=== PATIENT | female | born 1945 | race Caucasian/White ===

== ENCOUNTER 2016-10-16 21:24 | Emergency (ER) ==
[2016-10-16 21:34] VITALS: BP 142/76; TEMP 99.7; BMI 31.1
[2016-10-16] MEDS: DILAUDID 1 MG/ML SYRINGE IM STA (22:29)
[2016-10-16] MEDS: PHENERGAN 25 MG/ML VIAL IM STA (22:30)
[2016-10-16] MEDS: TORADOL IM STA (22:30)
--- NOTE | 2016-10-16 22:37 | ED.PDOC ---
General ED Provider: Dr. TIFFANIE MCCALL-ER Chief Complaint: Headache Stated Complaint: laila got a migraine--laila not had one in a long time--im nauseated and light hurts me Time Seen by Physician: 21:30 Mode of Arrival: Walk-In Information Source: Patient, Family Exam Limitations: No limitations Primary Care Provider: MADINA BLANCO Nursing and Triage Documentation Reviewed and Agree: Yes Neurological Complaint Exam - Headache Complaint/Exam Onset: Gradual Duration: several hours Symptoms Are: Still present Episodes Lasting: Hours Worst Headache Ever: No Initial Severity: Mild Current Severity: Moderate Location: Diffuse Character: Reports: Dull, Throbbing, Pressure, Typical headache, Migraine Aggravating: Reports: Bright lights Alleviating: Reports: None Associated Signs and Symptoms: Reports: Nausea. Denies: Dizziness, Seizure, Vomiting, Sinus pressure, Fever, Neck pain, Neck stiffness, Decreased LOC, Visual changes Related History: Reports: Similar episode (hx of migraine henson). Denies: Recent trauma, Remote trauma Related Surgical History: Reports: None SAH Risk Factors: Reports: None Meningitis Risk Factors: Reports: None Temporal Arteritis Risk Factors: Reports: Female, Normal Head CT Within Last 12 Months: No Fundoscopic Exam: Present: Normal Findings Papilledema Present: No Temporal Artery Tenderness: Present: None Sinus Tenderness: Present: None TMJ Tenderness: Present: None Glascow Coma Scale (see protocol): 15 Meningeal Signs Positive: No Pain on Passive Flexion-Positive Kernig's: No ROM Limited In: No Limitiations Focal Weakness: Present: None Focal Sensory Loss: Present: None Gait: Normal Nystagmus Present: No Gag Reflex Present: No [id number]-Agat: Normal Findings Romberg Test Positive: No Babinski Sign: Negative Right, Negative Left Heel to Toe Normal: Yes Differential Diagnoses: Migraine Review of Systems - Review Of Systems Constitutional: Reports: No symptoms Eyes: Reports: No symptoms Ears, Nose, Mouth, Throat: Reports: No symptoms Respiratory: Reports: No symptoms Cardiac: Reports: No symptoms GI: Reports: Nausea : Reports: No symptoms Musculoskeletal: Reports: No symptoms Skin: Reports: No symptoms Neurological: Reports: Headache Endocrine: Reports: No symptoms Hematologic/Lymphatic: Reports: No symptoms All Other Systems: Reviewed and Negative Past Medical History - Past Medical History Previously Healthy: No Endocrine: Reports: None Cardiovascular: Reports: None Respiratory: Reports: None Hematological: Reports: None Gastrointestinal: Reports: GERD Genitourinary: Reports: None Neuro/Psych: Reports: Anxiety Musculoskeletal: Reports: Other Cancer: Reports: None Last Menstrual Period: 1971 - Surgical History General Surgical History: Reports: None - Family History Family History: Reports: None - Social History Smoking Status: Former smoker Hx Substance Use: No Alcohol Screening: None Lives: With family - Immunizations Tetanus Shot up to Date: Yes Physical Exam - Physical Exam Appearance: Well-appearing, No pain distress, Well-nourished Eyes: EDILSON, EOMI, Conjunctiva clear ENT: Ears normal, Nose normal, Oropharynx normal Neck: Supple Respiratory: Airway patent, Breath sounds clear, Breath sounds equal, Respirations nonlabored Cardiovascular: RRR, Pulses normal, No rub, No murmur GI/: Soft, Nontender, No masses, Bowel sounds normal, No Organomegaly Musculoskeletal: Normal strength, ROM intact, No edema, No calf tenderness Skin: Warm, Dry, Normal color Neurological: Sensation intact, Motor intact, Reflexes intact, Cranial nerves intact, Alert, Oriented Psychiatric: Affect appropriate, Mood appropriate Interpretation - Radiology Interpretation Radiology Interpretation By: Radiologist Radiology Results: Negative Exam Interpreted: CT Scan Re-Evaluation - Re-Evaluation Time of Re-Evaluation: 22:53 Status: Improved Vital Signs Stable: Yes Pain Level: 1 Appearance: NAD Lungs: Clear Skin: Warm and Dry Neuro: Alert and Oriented X3 CV: RRR Critical Care Note - Critical Care Note Total Time (mins): 0 Course - Course Orders, Labs, Meds: Lab Review 10/16/16 22:04 ESR 28 H Orders Category Date Time Status ESR Stat LAB 10/16/16 22:04 Completed Hydromorphone HCl [Dilaudid 1 mg/ml Syringe] MEDS 10/16/16 21:41 Discontinued 1 mg IM ONCE STA Ketorolac Tromethamine [Toradol] MEDS 10/16/16 21:41 Discontinued 60 mg IM ONCE STA Promethazine HCl [Phenergan 25 mg/ml Vial] MEDS 10/16/16 21:41 Discontinued 25 mg IM ONCE STA CT HEAD W/O CONTRAST Stat RADS 10/16/16 21:[address] PELVIS W/O CONTRAST Stat RADS 10/16/16 21:41 Completed Medications Discontinued Medications Generic Name Dose Route Start Last Admin Trade Name Freq PRN Reason Stop Dose Admin Hydromorphone HCl 1 mg 10/16/16 21:41 10/16/16 22:29 Dilaudid 1 Mg/Ml Syringe IM 10/16/16 21:42 1 mg ONCE STA Administration Ketorolac Tromethamine 60 mg 10/16/16 21:41 10/16/16 22:30 Toradol IM 10/16/16 21:42 60 mg ONCE STA Administration Promethazine HCl 25 mg 10/16/16 21:41 10/16/16 22:30 Phenergan 25 Mg/Ml Vial IM 10/16/16 21:42 25 mg ONCE STA Administration radiiologist called and asked if any recent trauma--has prominent lambdoid sutures--she denies any recent trauma) Vital Signs: Temp Pulse Resp BP Pulse Ox 10/16/16 21:28 99.7 F H 99 H 20 142/76 H 98 Departure - Departure Time of Disposition: 22:55 Disposition: HOME SELF-CARE Discharge Problem: Migraine headache Qualifiers: Migraine type: without aura Status migrainosus presence: without status migrainosus Intractability: not intractable Qualifier Code: (G43.009) Migraine without aura, not intractable, without status migrainosus Instructions: Migraine Headache (ED) Condition: Good Pt referred to PMD for follow-up: Yes Additional Instructions: f/u wtih dr blanco Allergies/Adverse Reactions: Allergies Penicillins Adverse Reaction (Verified 10/16/16 21:34) Home Medications: Ambulatory Orders Pantoprazole Sodium [Protonix] 40 mg PO BID 10/17/14 Butalbital/Aspirin/Caffeine [Fiorinal 50-325-40 Mg Capsule] 1 each PO 3-4XD #50 05/13/16 Darifenacin Hydrobromide [Enablex] 15 mg PO DAILY 05/13/16 Lorazepam [Ativan] 0.5 mg PO TID 05/13/16 Disposition Discussed With: Patient, Family
--- NOTE | 2016-10-16 22:40 | CT ---
EXAM: CT scan pelvis without contrast HISTORY: Hip pain COMPARISON: None. FINDINGS: Contiguous axial images obtained through the pelvis without contrast utilizing 3-mm colli mation. Sagittal and coronal reconstructions were imaged and reviewed.. Atherosclerotic changes ar e seen involving the aorta without aneurysm formation. There has been prior hysterectomy. There is diverticulosis without diverticulitis. There is a smal l umbilical hernia containing only fat. Mild degenerative changes noted about the SI joints and cyndee ateral hip joints. IMPRESSION: Mild degenerative changes noted about the hip joints and SI joints. Diverticulosis without diverticulitis. ASVD.
--- NOTE | 2016-10-16 22:44 | CT ---
Exam: CT exam of the brain without intravenous contrast. Comparison: None available. Reason for exam: Headache. FINDINGS: No acute intracranial hemorrhage, mass effect, ventricular dilatation, or territorial inf arction. The quadrigeminal and ambient cisterns are patent. There is no extraaxial fluid collectio n. There is marked prominence of the lambdoid sutures. The paranasal sinuses and mastoid air cells are unopacified. Impression: 1. Marked prominence of the lambdoid sutures. Imaging findings can be seen with trauma and and also be congenital. Recommend correlation with history of trauma to the calvarium. 2. No acute intracranial findings. Image interpretation was discussed directly with the ordering physician at 2239 hours on 10/16/2016. Report was faxed at the same time.
[2016-10-16 22:51] LABS: ERYTHROCYTE SEDIMENTATION RATE 28 mm/hr (0-20); ESR INTERNAL QC INTERNAL QC VALID
== END 2016-10-16 23:35 | disposition home or self-care (01) ==
LOC: ED 21:24
DX: G43.009 Migraine without aura, not intractable, without status migrainosus (principal)
CPT/HCPCS: 36415; 85651; 96372; 99283

== ENCOUNTER 2016-10-27 10:37 | Emergency (ER) | payer OTHER ==
[2016-10-27 10:55] VITALS: BP 187/92; TEMP 97.8; BMI 30.7
--- NOTE | 2016-10-27 11:00 | ED.PDOC ---
General ED Provider: Dr. GREG CHOPRA JR Chief Complaint: Weakness Stated Complaint: FEW WEEKS AGO PATIENT STATES SHE HIT HER HEAD ON A IRON PIPE. DR MUÑOZ FAMILY MD DIRECTED HER TO CALL HIM IF SHE DID NOT FEEL BETTER. TODAY PATIENT C/O GENERAL WEAKNESS AND FATIGUE WITH MILD HEADACHE[ End ]for the past week 97.8 61 20 187/92 08/22. TWO EXTRA ST.TYLENOL AT 0830 AM. Time Seen by Physician: 11:00 Mode of Arrival: Walk-In Information Source: Patient, Family Exam Limitations: No limitations Primary Care Provider: MADINA MUÑOZ Nursing and Triage Documentation Reviewed and Agree: No Review of Systems - Review Of Systems Constitutional: Reports: Malaise, Weakness Eyes: Reports: Photophobia Ears, Nose, Mouth, Throat: Reports: No symptoms Respiratory: Reports: No symptoms Cardiac: Reports: No symptoms GI: Reports: No symptoms : Reports: No symptoms Musculoskeletal: Reports: Neck pain Skin: Reports: No symptoms Neurological: Reports: Headache, Weakness Endocrine: Reports: No symptoms Hematologic/Lymphatic: Reports: No symptoms All Other Systems: Other Past Medical History - Past Medical History Previously Healthy: No Endocrine: Reports: None Cardiovascular: Reports: None Respiratory: Reports: None Hematological: Reports: None, Other (BLADDER ISSUES ) Gastrointestinal: Reports: GERD Genitourinary: Reports: None Neuro/Psych: Reports: Anxiety Musculoskeletal: Reports: Other Cancer: Reports: None Last Menstrual Period: 1973 - Surgical History General Surgical History: Reports: None, Hysterectomy ( PARTIAL HIST. 1971), Tubal ligation, Cholecystectomy (GALLBLADDER REMOVED), Back Surgery (2 NECK SURGERIES 1 LOWER BACK SURGER) - Family History Family History: Reports: None - Social History Smoking Status: Former smoker Hx Substance Use: No Alcohol Screening: None - Immunizations Tetanus Shot up to Date: Yes Physical Exam - Physical Exam Appearance: Ill-appearing Ill-appearing: Mild Pain Distress: Mild Eyes: EDILSON, EOMI, Conjunctiva clear ENT: Ears normal, Nose normal, Oropharynx normal Neck: Supple Respiratory: Airway patent Cardiovascular: RRR, Pulses normal, No rub, No murmur GI/: Soft, Nontender, No masses, Bowel sounds normal, No Organomegaly Musculoskeletal: Normal strength, ROM intact, No edema, No calf tenderness Skin: Warm, Dry, Normal color Neurological: Sensation intact, Motor intact, Reflexes intact, Cranial nerves intact, Alert, Oriented Psychiatric: Affect appropriate, Mood appropriate, Anxious Interpretation - Radiology Interpretation Radiology Interpretation By: Radiologist Radiology Results: Negative Exam Interpreted: CT Scan (head neck) - EKG Interpretation Time of EKG #1: 11:19 Rate: Normal Rhythm: Sinus Ectopy: None [place]: NL ST Segment: Normal Critical Care Note - Critical Care Note Total Time (mins): 5 Course - Course Hematology/Chemistry: 10/27/16 11:31 10/27/16 11:31 Orders, Labs, Meds: Lab Review 10/27/16 10/27/16 10/27/16 10:58 11:31 12:24 WBC 5.91 RBC 4.91 Hgb 13.6 Hct 40.7 MCV 82.9 MCH 27.7 MCHC 33.4 RDW Coeff of Víctor 13.0 Plt Count 289 Immature Gran % (Auto) 0.3 Neut % (Auto) 68.1 Lymph % (Auto) 22.7 Hardy % (Auto) 6.9 Eos % (Auto) 1.5 Baso % (Auto) 0.5 Immature Gran # (Auto) 0.0 Neut # 4.0 Lymph # 1.3 Hardy # 0.4 Eos # 0.1 Baso # 0.0 Puncture Site Rrad O2 Saturation 95.0 ABG pH 7.398 ABG pCO2 39.5 ABG pO2 74.0 L ABG HCO3 24.4 ABG Total CO2 26 ABG Base Excess 0 Felipe Test + FiO2 % 21.0 Sodium 136 Potassium 4.0 Chloride 102 Carbon Dioxide 27 Anion Gap 11.0 BUN 8 Creatinine 0.78 Estimated GFR (MDRD) 73.00 BUN/Creatinine Ratio 10.25 Glucose 94 Lactic Acid 7.6 Calcium 9.6 Total Bilirubin 0.68 AST 24 ALT 35 Alkaline Phosphatase 62 Total Creatine Kinase 26 Troponin I < 0.0100 B-Natriuretic Peptide 86 Total Protein 7.6 Albumin 4.0 Globulin 3.6 Albumin/Globulin Ratio 1.11 Procalcitonin < 0.05 Urine Color Yellow Urine Clarity Clear Urine pH 7.0 Ur Specific [place] 1.010 Urine Protein Negative Urine Glucose (UA) Negative Urine Ketones Negative Urine Blood Negative Urine Nitrite Negative Urine Bilirubin Negative Urine Urobilinogen 0.2 Ur Leukocyte Esterase Negative Orders Category Date Time Status ABG DRAW REQUEST Stat CARDIO 10/27/16 10:59 Completed EKG-(ED ONLY) Stat CARDIO 10/27/16 10:58 Completed ED HOUSEPERSON APPLIED .ONCE EMERGENCY 10/27/16 10:58 Active ED IV/MEDIPORT/POWERPORT .ONCE EMERGENCY 10/27/16 10:58 Active ABG Stat LAB 10/27/16 10:58 Completed B-TYPE NATRIURETIC PEPTIDE Stat LAB 10/27/16 11:31 Completed CBC W/ AUTO DIFF Stat LAB 10/27/16 11:31 Completed COMPREHENSIVE METABOLIC PANEL Stat LAB 10/27/16 11:31 Completed CREATINE KINASE Stat LAB 10/27/16 11:31 Completed LACTIC ACID Stat LAB 10/27/16 11:31 Completed PROCALCITONIN Stat LAB 10/27/16 11:31 Completed TROPONIN I Stat LAB 10/27/16 11:31 Completed UA [URINALYSIS C & S IF INDICATED] Stat LAB 10/27/16 12:24 Completed 0.9 % Sodium Chloride [Saline Flush] MEDS 10/27/16 10:58 Active 1 syr IVF PRN PRN Hydrocodone Bit/Acetaminophen [Nelson 5-325] MEDS 10/27/16 13:22 Discontinued 1 tab PO ONCE STA CHEST, 1V AP ONLY Stat RADS 10/27/16 10:[address] CERVICAL SPINE W/O CONTRAST Stat RADS 10/27/16 12:[address] HEAD W/O CONTRAST Stat RADS 10/27/16 10:59 Completed MRI BRAIN W/WO CONTRAST Stat RADS 10/27/16 12:53 Ordered Medications Generic Name Dose Route Start Last Admin Trade Name Freq PRN Reason Stop Dose Admin Sodium Chloride 1 syr 10/27/16 10:58 Saline Flush IVF PRN PRN To flush IV Discontinued Medications Generic Name Dose Route Start Last Admin Trade Name Freq PRN Reason Stop Dose Admin Acetaminophen/Hydrocodone Bitart 1 tab 10/27/16 13:22 10/27/16 13:37 Nelson 5-325 PO 10/27/16 13:23 1 tab ONCE STA Administration Vital Signs: Temp Pulse Resp BP Pulse Ox 10/27/16 10:42 97.8 F 61 20 187/92 H 20 L Departure - Departure Time of Disposition: 13:26 Disposition: HOME SELF-CARE Discharge Problem: Headache Instructions: General Headache (ED), Chronic Post Traumatic Headache (ED) Condition: Good Pt referred to PMD for follow-up: Yes Additional Instructions: Please follow-up with Dr. Muñoz in 1-3 days. MRI of the brain light exercise(walking) avoid strenuous activity such as video games television or computer games Prescriptions: Tramadol HCl [Ultram] 50 mg PO Q6H PRN #14 tablet PRN Reason: PAIN Allergies/Adverse Reactions: Allergies Penicillins Adverse Reaction (Verified 10/16/16 21:34) Home Medications: Ambulatory Orders Pantoprazole Sodium [Protonix] 40 mg PO BID 10/17/14 Darifenacin Hydrobromide [Enablex] 15 mg PO DAILY 05/13/16 Lorazepam [Ativan] 0.5 mg PO TID 05/13/16 Tramadol HCl [Ultram] 50 mg PO Q6H PRN #14 tablet 10/27/16
[2016-10-27 11:20] LABS: ABG BASE EXCESS 0 (-2.0-2.0); ABG HCO3 24.4 (22.0-26.0); ABG PCO2 39.5 mmHg (35-45); ABG PH 7.398 (7.35-7.45); ABG TCO2 26 (22.0-28.0)
[2016-10-27 11:40] LABS: BASOPHILS % (AUTO) 0.5 % (0.0-3.0); EOSINOPHILS # (AUTO) 0.1 K/ul (0.0-0.7); EOSINOPHILS % (AUTO) 1.5 % (0.0-7.0); HEMATOCRIT 40.7 % (37.0-47.0); HEMOGLOBIN 13.6 g/dl (12.0-16.0); IMMATURE GRANULOCYTE % (AUTO) 0.3 % (0.0-5.0); LYMPHOCYTES # (AUTO) 1.3 K/uL (0.60-3.4); LYMPHOCYTES % (AUTO) 22.7 (10.0-50.0); MEAN CORPUSCULAR HEMOGLOBIN 27.7 pg (27.0-31.0); MEAN CORPUSCULAR HGB CONC 33.4 (31.8-35.4); MEAN CORPUSCULAR VOLUME 82.9 fl (81.0-99.0); MONOCYTES # (AUTO) 0.4 K/uL (0.4-2.0); MONOCYTES % (AUTO) 6.9 (0-10); NEUTROPHILS % (AUTO) 68.1; PLATELET COUNT 289 10^3/uL (140-440); RED BLOOD COUNT 4.91 10^6/ul (4.20-5.40); WHITE BLOOD COUNT 5.91 K/ul (4.6-10.2)
--- NOTE | 2016-10-27 11:54 | DI ---
Exam: Single x-ray of the chest. Comparison: 08/15/2010. CTA chest performed on 12/01/2014. Reason for exam: Chest pain. FINDINGS: No pneumothorax, pleural effusion, or focal consolidation. The cardiac silhouette is not enlarged. Granulomatous disease is seen within the lung parenchyma. The imaged osseous structures a re unremarkable without acute fracture. Operative changes are seen after ACDF. Impression: No acute cardiopulmonary process.
[2016-10-27 12:06] LABS: ALANINE AMINOTRANSFERASE 35 U/L (12-78); ALBUMIN/GLOBULIN RATIO 1.11; ALKALINE PHOSPHATASE 62 U/L (53-141); ASPARTATE AMINO TRANSFERASE 24 U/L (15-37); BILIRUBIN,TOTAL 0.68 mg/dL (0.00-1.20); BLOOD UREA NITROGEN 8 mg/dL (7-18); BUN/CREATININE RATIO 10.25; CALCIUM 9.6 mg/dL (8.2-10.2); CARBON DIOXIDE 27 mmol/L (23-31); CHLORIDE 102 mmol/L (98-107); CREATINE KINASE 26 U/L; CREATININE 0.78 mg/dL (0.60-1.30); GLUCOSE 94 mg/dL (82-115); SODIUM 136 mmol/L (136-145); TOTAL PROTEIN 7.6 g/dL (5.8-8.1)
--- NOTE | 2016-10-27 12:07 | CT ---
EXAM: CT head without contrast. HISTORY: Leg weakness. Worsening headache. Recent head trauma. Subsequent evaluation. COMPARISON: 10/16/2016. TECHNIQUE: Multiple axial images of the brain were obtained from the skull base through the vertex without intravenous contrast. FINDINGS: There is no intracranial hemorrhage or extraaxial collection. The murphy-white differentia tion is maintained without evidence for acute large vascular territory infarction. There are areas of periventricular and subcortical white matter low attenuation. The cortical sulci and cerebral ve ntricles are symmetrically enlarged. The basal cisterns are well visualized. There is no hydroceph alus, mass effect, or midline shift. The paranasal sinuses and mastoid air cells are clear. Promin ence of the lambdoid sutures again noted, which appears stable, most likely congenital. The calvari um is intact. Since the prior study, there has been no significant interval change. IMPRESSION: 1. No acute intracranial abnormality. 2. Chronic small vessel ischemic changes and atrophy.
[2016-10-27 12:38] LABS: BILIRUBIN,URINE Negative (NEGATIVE); KETONES,URINE Negative (NEGATIVE); LEUKOCYTE ESTERASE ,URINE Negative (NEGATIVE); NITRITE,URINE Negative (NEGATIVE); PROTEIN,URINE Negative (NEGATIVE); URINE, BLOOD Negative (NEGATIVE)
[2016-10-27 12:40] LABS: ADD URINE MICROSCOPIC NO
--- NOTE | 2016-10-27 13:21 | CT ---
EXAM: CT of the cervical spine without contrast History: Head and neck trauma. Technique: Multiplanar CT images through the cervical spine were obtained without the administratio n of IV contrast Findings: The visualized lung apices are free of consolidation. The visualized airway does remain patent. Ant erior cervical fusion hardware at C4-5 is grossly intact. Bony spinal canal is not significantly co mpromised. No prevertebral soft tissue swelling. Predental space is not widened. Impression: No acute osseous abnormality of the cervical spine.
[2016-10-27] MEDS ORDERED: NORCO 5-325 PO STA (13:22)
== END 2016-10-27 15:03 | disposition home or self-care (01) ==
LOC: ED 10:37
DX: G44.309 Post-traumatic headache, unspecified, not intractable (principal); R53.1 Weakness; R53.83 Other fatigue; M54.2 Cervicalgia; Z79.899 Other long term (current) drug therapy
CPT/HCPCS: 36415; 80053; 81001; 82550; 82803; 83605; 83880; 84145; 84484; 85025; 93005; 93010; 99283

== ENCOUNTER 2016-10-28 06:56 | Outpatient (CLI) | payer OTHER ==
[2016-10-27 10:55] VITALS: BMI 30.7
--- NOTE | 2016-10-28 09:38 | MRI ---
EXAM: MRI brain without and with IV contrast. DATE: 10/28/2016. HISTORY: Head injury. Iron pipe hit top of head 13 Oct 2016. Headaches, migraines since the injury . TECHNIQUE: Sagittal T1W pre and postcontrast, axial T2W, axial FLAIR, axial T1W pre and postcontras t, axial DWI, coronal T1W postcontrast, and coronal T2W GRE sequences of the brain were obtained usi 1.2 Molly magnet. CONTRAST: Omniscan - 14 ml IV. COMPARISON: CT head 10/27/2016. FINDINGS: The lateral ventricles, temporal tips, third ventricle and left sylvian fissure are mildl y prominent. The frontal lobe sulci are minor/mildly enlarged due to involutional change. Horizont al fissures and some cerebellar sulci are also enlarged. No midline shift, mass effect or abnormal extra-axial fluid collection is apparent. No acute infarct, hemorrhage or enhancing neoplasm is rosy ntified. No abnormal contrast enhancement is identified in the brain, meninges or dura. Minimal T2 W/FLAIR hyperintensity is observed white matter abutting the anterior horn of each lateral ventricle . A few 2-3 mm, T2W/FLAIR bright, non-enhancing foci are scattered within the frontal subcortical w carlene matter bilaterally. The murphy - white matter differentiation is normal. No migration or divert iculation abnormality is identified. The amygdala, hippocampus, and parahippocampal gyri are symmet didier and normal bilaterally. The 7th/8th cranial nerve complexes, cerebellopontine angles, brainstem , and visible cervical spinal cord are normal. There is no cerebellar tonsillar ectopia. The pitui tary gland is normal in size and signal. Corpus callosum is normal in size and configuration. Left vertebral artery is dominant. Flow voids are present in the major intracranial arteries and in the dural venous sinuses. No aneurysm, AVM or dural venous sinus thrombosis is apparent. No orbit abn ormality is identified. The mastoid air cells are unremarkable. There is opacification of a single left anterior ethmoid air cell. Remaining paranasal sinuses are clear. No neck mass or lymphadeno maureen is detected. No calvarial neoplasm or acute fracture is evident. C3-4 posterior disc/osteophy te complex appears cause mild central canal stenosis. IMPRESSIONS: 1. No acute infarct, hemorrhage, enhancing neoplasm or hydrocephalus. 2. Minor cerebral small vessel disease. 3. Mild cerebral and cerebellar atrophy. 4. Minor left anterior ethmoid sinusitis. 5. C3-4 mild central canal stenosis.
== END 2016-10-28 06:57 | disposition home or self-care (01) ==
LOC: RAD 06:56
PROVIDERS: ATTEND Emergency Medicine
DX: S09.90XA Unspecified injury of head, initial encounter (principal)

== ENCOUNTER 2016-11-12 16:04 | Outpatient (CLI) ==
--- NOTE | 2016-11-12 16:44 | DI ---
EXAM: Lumbar spine five views, including oblique views HISTORY: Low back pain COMPARISON: None TECHNIQUE: Five views lumbar spine were performed including oblique views FINDINGS: Sacroiliac joints intact. Sacral arcuate intact. Vertebral bodies normal height. No fr acture. No subluxation. Multilevel marginal osteophyte formation. Mild multilevel intervertebral disc space narrowing and mild to moderate intervertebral disc space narrowing L4-L5. Multilevel fac et arthrosis. Atherosclerotic vascular calcification. IMPRESSION: Chronic discogenic degenerative disease and facet arthrosis.
== END 2016-11-12 16:05 | disposition home or self-care (01) ==
LOC: RAD 16:04
PROVIDERS: ATTEND Nurse Practitioner Family
DX: M54.5 Low back pain (principal)

== ENCOUNTER 2017-02-05 07:50 | Outpatient (CLI) | payer OTHER ==
--- NOTE | 2017-02-06 11:04 | MAMMO ---
EXAM: Bilateral digital screening mammogram History: Screening. Comparison: Bilateral mammogram 01/23/2016 Findings: MLO and CC views of bilateral breasts demonstrate heterogeneously dense breast parenchyma which can obscure small lesions. Stable benign bilateral vascular and scattered calcifications. T here are no dominant masses, no suspicious microcalcifications and no architectural distortions Impression: Benign stable mammogram. Recommend followup routine screening mammography in 1 year. BIRADS 2
== END 2017-02-05 07:51 | disposition home or self-care (01) ==
LOC: RAD 07:50
PROVIDERS: ATTEND Internal Medicine
DX: Z12.31 Encounter for screening mammogram for malignant neoplasm of breast (principal)
CPT/HCPCS: 77067

== ENCOUNTER 2017-05-10 11:36 | Emergency (ER) ==
[2017-05-10] MEDS ORDERED: STADOL IM STA (11:43)
[2017-05-10] MEDS ORDERED: ZOFRAN 4 MG/2 ML IM STA (11:43)
[2017-05-10 11:49] VITALS: BP 168/89; TEMP 96.7; BMI 29.0
--- NOTE | 2017-05-10 11:51 | ED.PDOC ---
General ED Provider: Dr. RONNIE KEYES Chief Complaint: Headache Stated Complaint: Came for the nadia, with sister, says light is bothering her, front of the head is hurting,. it all started since October 2016, when she had head injury. concussion. Time Seen by Physician: 11:40 Primary Care Provider: MADINA MUÑOZ Nursing and Triage Documentation Reviewed and Agree: Yes Neurological Complaint Exam - Headache Complaint/Exam Onset: Gradual Symptoms Are: Still present Timing: Constant Episodes Lasting: Hours Worst Headache Ever: No Initial Severity: Moderate Current Severity: Severe Location: Right, Left, Frontal Character: Reports: Dull, Throbbing, Typical headache, Migraine Aggravating: Reports: Bright lights Alleviating: Reports: None Associated Signs and Symptoms: Reports: Neck pain. Denies: Dizziness, Seizure, Nausea, Vomiting, Sinus pressure, Fever, Neck stiffness, Decreased LOC, Visual changes Related History: Reports: Similar episode Related Surgical History: Reports: None SAH Risk Factors: Reports: None Meningitis Risk Factors: Reports: None SDH Risk Factors: Reports: None Temporal Arteritis Risk Factors: Reports: None Normal Head CT Within Last 12 Months: Yes Temporal Artery Tenderness: Present: None Sinus Tenderness: Present: None TMJ Tenderness: Present: None Meningeal Signs Positive: No Pain on Passive Flexion-Positive Kernig's: No ROM Limited In: No Limitiations Focal Weakness: Present: None Focal Sensory Loss: Present: None Gait: Normal Nystagmus Present: No Gag Reflex Present: Yes [id number]: Normal Findings Romberg Test Positive: No Babinski Sign: Negative Right, Negative Left Differential Diagnoses: Migraine Review of Systems - Review Of Systems Constitutional: Reports: No symptoms Eyes: Reports: No symptoms Ears, Nose, Mouth, Throat: Reports: No symptoms Respiratory: Reports: No symptoms Cardiac: Reports: No symptoms GI: Reports: No symptoms : Reports: No symptoms Musculoskeletal: Reports: No symptoms Skin: Reports: No symptoms Neurological: Reports: Headache Endocrine: Reports: No symptoms Hematologic/Lymphatic: Reports: No symptoms All Other Systems: Reviewed and Negative Past Medical History - Past Medical History Previously Healthy: No Endocrine: Reports: None Cardiovascular: Reports: None Respiratory: Reports: None Hematological: Reports: None, Other (BLADDER ISSUES ) Gastrointestinal: Reports: GERD Genitourinary: Reports: None Neuro/Psych: Reports: Anxiety Musculoskeletal: Reports: Other Cancer: Reports: None Other Pertinent Past Medical History: gerd anx - Surgical History General Surgical History: Reports: None, Hysterectomy ( PARTIAL HIST. 1972), Tubal ligation, Cholecystectomy (GALLBLADDER REMOVED), Back Surgery (2 NECK SURGERIES 1 LOWER BACK SURGER) - Family History Family History: Reports: None - Social History Smoking Status: Former smoker Hx Substance Use: No Alcohol Screening: None Physical Exam - Physical Exam Appearance: Ill-appearing Eyes: EOMI, Conjunctiva clear ENT: Ears normal, Nose normal, Oropharynx normal Respiratory: Airway patent, Breath sounds clear, Breath sounds equal, Respirations nonlabored Cardiovascular: RRR, Pulses normal, No rub, No murmur GI/: Soft, Nontender, No masses, Bowel sounds normal, No Organomegaly Musculoskeletal: Normal strength, ROM intact, No edema, No calf tenderness Skin: Warm, Dry, Normal color Neurological: Sensation intact, Motor intact, Reflexes intact, Cranial nerves intact, Alert, Oriented Psychiatric: Affect appropriate, Mood appropriate Interpretation - Radiology Interpretation Radiology Interpretation By: Radiologist Radiology Results: Negative Exam Interpreted: CT Scan Critical Care Note - Critical Care Note Total Time (mins): 15 Course - Course Orders, Labs, Meds: Orders Category Date Time Status Butorphanol Tartrate [Stadol] MEDS 05/10/17 11:43 Discontinued 2 mg IM ONCE STA Ondansetron HCl/Pf [Zofran 4 mg/2 ml] MEDS 05/10/17 11:43 Discontinued 4 mg IM ONCE STA CT CERVICAL SPINE W/O CONTRAST Stat RADS 05/10/17 11:[address] HEAD W/O CONTRAST Stat RADS 05/10/17 11:43 Completed Medications Discontinued Medications Generic Name Dose Route Start Last Admin Trade Name Freq PRN Reason Stop Dose Admin Butorphanol Tartrate 2 mg 05/10/17 11:43 05/10/17 12:09 Stadol IM 05/10/17 11:44 2 mg ONCE STA Administration Ondansetron HCl 4 mg 05/10/17 11:43 05/10/17 12:12 Zofran 4 Mg/2 Ml IM 05/10/17 11:44 4 mg ONCE STA Administration Vital Signs: Temp Pulse Resp BP Pulse Ox 05/10/17 11:37 96.7 F L 64 20 168/89 H 96 Departure - Departure Time of Disposition: 13:00 Disposition: HOME SELF-CARE Discharge Problem: Headache Instructions: Migraine Headache (ED) Condition: Good Pt referred to PMD for follow-up: Yes Additional Instructions: Keep taking Tramadol prn Increase hydration Keep F/u with PMD Allergies/Adverse Reactions: Allergies Penicillins Adverse Reaction (Verified 05/10/17 11:49) Home Medications: Ambulatory Orders Pantoprazole Sodium [Protonix] 40 mg PO BID 10/17/14 Lorazepam [Ativan] 0.5 mg PO TID 05/13/16 Tramadol HCl [Ultram] 50 mg PO Q6H PRN #14 tablet 10/27/16 Disposition Discussed With: Patient, Family
--- NOTE | 2017-05-10 12:41 | CT ---
EXAM: CT Head HISTORY: Headache, history of compression injury COMPARISON: 10/27/2016 TECHNIQUE: CT head performed without contrast FINDINGS: There is no mass effect, midline shift, or intracranial hemmorhage. [place] white differenti ation is preserved. There is no extra-axial collection. The ventricles, sulci, and basal cisterns a re patent and symmetric. There is chronic ischemic disease of the white matter and cerebral volume l oss. There is no depressed calvarial fracture. The mastoid air cells are clear. The visualized para nasal sinuses are clear. There are intracranial atherosclerotic calcifications. IMPRESSION: 1. No acute intracranial abnormality. 2. Chronic ischemic disease of the white matter and cerebral volume loss.
--- NOTE | 2017-05-10 12:49 | CT ---
EXAM: CT cervical spine without contrast HISTORY: Neck. COMPARISON: None TECHNIQUE: CT cervical spine performed without intravenous contrast. Coronal and sagittal reformatt ed images obtained. FINDINGS: Patient status post anterior spinal fusion C4-C5. Interbody spacer. Hardware appears int act. Vertebral bodies normal height. No fracture. No subluxation. Moderate intervertebral disc sp irma narrowing C5-C6 and C6-C7. Multilevel facet and uncovertebral hypertrophy. Central canal grossl y patent. Prevertebral soft tissues appear normal. IMPRESSION: 1. No fracture or subluxation. 2. Status post anterior spinal fusion C4-C5. 3. Chronic degenerative changes.
== END 2017-05-10 13:15 | disposition home or self-care (01) ==
LOC: ED 11:36
DX: R51 Headache (principal); M54.2 Cervicalgia
CPT/HCPCS: 96372; 99283

== ENCOUNTER 2017-06-01 08:02 | Emergency (ER) ==
[2017-06-01 08:03] VITALS: BMI 29.0
[2017-06-01 08:09] VITALS: BP 156/87; TEMP 101.1
[2017-06-01 08:38] LABS: BASOPHILS % (AUTO) 0.3 % (0.0-3.0); EOSINOPHILS # (AUTO) 0.1 K/ul (0.0-0.7); EOSINOPHILS % (AUTO) 1.1 % (0.0-7.0); HEMATOCRIT 38.8 % (37.0-47.0); HEMOGLOBIN 12.8 g/dl (12.0-16.0); IMMATURE GRANULOCYTE % (AUTO) 0.3 % (0.0-5.0); LYMPHOCYTES # (AUTO) 0.6 K/uL (0.60-3.4); LYMPHOCYTES % (AUTO) 9.3 (10.0-50.0); MEAN CORPUSCULAR HEMOGLOBIN 27.6 pg (27.0-31.0); MEAN CORPUSCULAR VOLUME 83.8 fl (81.0-99.0); MONOCYTES # (AUTO) 0.6 K/uL (0.4-2.0); NEUTROPHILS # (AUTO) 4.8 K/ul (2.0-6.9); PLATELET COUNT 208 10^3/uL (140-440); RED BLOOD COUNT 4.63 10^6/ul (4.20-5.40)
[2017-06-01 08:49] LABS: FLU INTERNAL QC INTERNAL QC VALID; RAPID FLU A NEGATIVE (NEGATIVE); RAPID FLU B NEGATIVE (NEGATIVE)
[2017-06-01 08:54] LABS: ALBUMIN 3.6 g/dL (3.4-5.0); ALBUMIN/GLOBULIN RATIO 0.97; ANION GAP 12.6; BILIRUBIN,TOTAL 0.78 mg/dL (0.00-1.20); BUN/CREATININE RATIO 17.33; CALCIUM 9.4 mg/dL (8.2-10.2); CREATININE 0.75 mg/dL (0.60-1.30); POTASSIUM 3.6 mmol/L (3.5-5.10); TOTAL PROTEIN 7.3 g/dL (5.8-8.1)
--- NOTE | 2017-06-01 08:58 | DI ---
Exam: Two x-rays of the chest. Comparison: 10/27/2016. Reason for exam: Cough. FINDINGS: Operative changes are seen after anterior cervical discectomy and fusion. No pneumothorax , pleural effusion, or focal consolidation. The cardiac silhouette is not enlarged. The imaged osse ous structures appear grossly unremarkable with without fracture. Impression: No acute cardiopulmonary process.
--- NOTE | 2017-06-01 10:02 | ED.PDOC ---
General ED Provider: Dr. WILLIAN SHEIKH Chief Complaint: Respiratory Complaint Stated Complaint: cough Time Seen by Physician: 08:00 Mode of Arrival: Walk-In Information Source: Patient Exam Limitations: No limitations Primary Care Provider: MADINA MUÑOZ Nursing and Triage Documentation Reviewed and Agree: Yes (seen with anthony de leon ) Respiratory Complaint Exam - Respiratory Complaint/Exam Onset/Duration: 1 day Symptoms Are: Resolved Initial Severity: Mild Current Severity: Mild Location: Nose, Throat, Chest Character: Reports: Non-productive cough Aggravating: Reports: None Alleviating: Reports: Spontaneous resolution Associated Signs and Symptoms: Denies: Rapid breathing, Dyspnea, Fever, Chills, Chest pain, Pleuritic chest pain, Wheezing, Hemoptysis, Dizziness, Calf pain, Calf swelling, Edema, URI, Nasal congestion, Hoarseness, Sinus discomfort, Vomiting, Sore throat, Weight loss, Decreased oral intake, Increased thirst, Increased appetite, Increased urination Related History: Reports: Similar episode History of Healthcare-Acquired Pneumonia: No Related Surgical History: Reports: None Pulmonary Embolism Risk Factors: None Cardiac Risk Factors: Reports: None Pseudomonas Risk Factors: Reports: None Tuberculosis Risk Factors: Reports: None Home Oxygen Use: No Recent Stress Test: No Recent Echo/LV Function: No Current Antibiotic Use: No Current Asthma Medication Use: No Respiratory Distress: None Inadequate Respiratory Effort: No Dysphagia Present: No Stridor Present: No JVD Present: No Accessory Muscle Use: No Retractions: Not Present Diminished Breath Sounds: No Sinus Tenderness: None Grunting Respirations: No Kussmaul Respirations: No Differential Diagnoses: Pneumonia, Bronchitis Review of Systems - Review Of Systems Constitutional: Reports: No symptoms Eyes: Reports: No symptoms Ears, Nose, Mouth, Throat: Reports: No symptoms Respiratory: Reports: No symptoms Cardiac: Reports: No symptoms GI: Reports: No symptoms : Reports: No symptoms Musculoskeletal: Reports: No symptoms Skin: Reports: No symptoms Neurological: Reports: No symptoms Endocrine: Reports: No symptoms Hematologic/Lymphatic: Reports: No symptoms All Other Systems: Reviewed and Negative Past Medical History - Past Medical History Previously Healthy: No Endocrine: Reports: None Cardiovascular: Reports: None Respiratory: Reports: None Hematological: Reports: None, Other (BLADDER ISSUES ) Gastrointestinal: Reports: GERD Genitourinary: Reports: None Neuro/Psych: Reports: Anxiety Musculoskeletal: Reports: Other Cancer: Reports: None Last Menstrual Period: hysterectomy Other Pertinent Past Medical History: gerd anx - Surgical History General Surgical History: Reports: None, Hysterectomy ( PARTIAL HIST. 1972), Tubal ligation, Cholecystectomy (GALLBLADDER REMOVED), Back Surgery (2 NECK SURGERIES 1 LOWER BACK SURGER) - Family History Family History: Reports: None - Social History Smoking Status: Former smoker Hx Substance Use: No Alcohol Screening: None Physical Exam - Physical Exam Appearance: Well-appearing, No pain distress, Well-nourished Eyes: EDILSON, EOMI, Conjunctiva clear ENT: Ears normal, Nose normal, Oropharynx normal Respiratory: Airway patent, Breath sounds clear, Breath sounds equal, Respirations nonlabored Cardiovascular: RRR, Pulses normal, No rub, No murmur GI/: Soft, Nontender, No masses, Bowel sounds normal, No Organomegaly Musculoskeletal: Normal strength, ROM intact, No edema, No calf tenderness Skin: Warm, Dry, Normal color Neurological: Sensation intact, Motor intact, Reflexes intact, Cranial nerves intact, Alert, Oriented Psychiatric: Affect appropriate, Mood appropriate Critical Care Note - Critical Care Note Total Time (mins): 0 Course - Course Hematology/Chemistry: 06/01/17 08:28 06/01/17 08:28 Orders, Labs, Meds: Lab Review 06/01/17 06/01/17 06/01/17 08:25 08:28 08:28 WBC 6.10 RBC 4.63 Hgb 12.8 Hct 38.8 MCV 83.8 MCH 27.6 MCHC 33.0 RDW Coeff of Víctor 13.8 Plt Count 208 Immature Gran % (Auto) 0.3 Neut % (Auto) 79.0 Lymph % (Auto) 9.3 L [place] % (Auto) 10.0 Eos % (Auto) 1.1 Baso % (Auto) 0.3 Immature Gran # (Auto) 0.0 Neut # 4.8 Lymph # 0.6 [place] # 0.6 Eos # 0.1 Baso # 0.0 Sodium 136 Potassium 3.6 Chloride 101 Carbon Dioxide 26 Anion Gap 12.6 BUN 13 Creatinine 0.75 Estimated GFR (MDRD) 76.00 BUN/Creatinine Ratio 17.33 Glucose 95 Lactic Acid Calcium 9.4 Total Bilirubin 0.78 AST 13 L ALT 11 L Alkaline Phosphatase 65 Total Protein 7.3 Albumin 3.6 Globulin 3.7 Albumin/Globulin Ratio 0.97 Procalcitonin Influenza A (Rapid) Negative Influenza B (Rapid) Negative 06/01/17 06/01/17 08:28 08:28 WBC RBC Hgb Hct MCV MCH MCHC RDW Coeff of Víctor Plt Count Immature Gran % (Auto) Neut % (Auto) Lymph % (Auto) [place] % (Auto) Eos % (Auto) Baso % (Auto) Immature Gran # (Auto) Neut # Lymph # [place] # Eos # Baso # Sodium Potassium Chloride Carbon Dioxide Anion Gap BUN Creatinine Estimated GFR (MDRD) BUN/Creatinine Ratio Glucose Lactic Acid 5.8 Calcium Total Bilirubin AST ALT Alkaline Phosphatase Total Protein Albumin Globulin Albumin/Globulin Ratio Procalcitonin < 0.05 Influenza A (Rapid) Influenza B (Rapid) Orders Category Date Time Status BLOOD CULTURE Stat LAB 06/01/17 08:28 Received CBC W/ AUTO DIFF Stat LAB 06/01/17 08:28 Completed COMPREHENSIVE METABOLIC PANEL Stat LAB 06/01/17 08:28 Completed LACTIC ACID Stat LAB 06/01/17 08:28 Completed MOLECULAR GROUP A STREP Stat LAB 06/01/17 08:25 Results PROCALCITONIN Stat LAB 06/01/17 08:28 Completed RAPID FLU A/B Stat LAB 06/01/17 08:25 Completed STREP SCREEN Stat LAB 06/01/17 08:25 Results URINALYSIS C & S IF INDICATED Stat LAB 06/01/17 08:15 Uncollected CHEST, 2 VIEWS PA & LAT Stat RADS 06/01/17 08:15 Completed Vital Signs: Temp Pulse Resp BP Pulse Ox 06/01/17 08:03 101.1 F H 97 H 16 156/87 H 96 Departure - Departure Time of Disposition: 10:01 Disposition: HOME SELF-CARE Discharge Problem: Viral syndrome Instructions: Viral Syndrome (ED) Condition: Good Pt referred to PMD for follow-up: Yes Additional Instructions: Please call your Family Physician as soon as possible to schedule a follow-up appointment. Allergies/Adverse Reactions: Allergies Penicillins Adverse Reaction (Verified 06/01/17 08:12) Home Medications: Ambulatory Orders Pantoprazole Sodium [Protonix] 40 mg PO BID 10/17/14 Lorazepam [Ativan] 0.5 mg PO TID 05/13/16 Tramadol HCl [Ultram] 50 mg PO Q6H PRN #14 tablet 10/27/16 Disposition Discussed With: Patient
== END 2017-06-01 10:07 | disposition home or self-care (01) ==
LOC: ED 08:02
DX: B34.9 Viral infection, unspecified (principal)
CPT/HCPCS: 36415; 80053; 83605; 84145; 85025; 87040; 87651; 87804; 87880; 99283

== ENCOUNTER 2017-11-03 07:36 | Day surgery (SDC) ==
[2017-11-03] MEDS ORDERED: LIDOCAINE 1% 20 ML MDV ID STA (08:08)
[2017-11-03] MEDS ORDERED: DIPRIVAN 20 ML VIAL IVP ONE (10:25)
[2017-11-03] MEDS ORDERED: VERSED ONE (10:25)
[2017-11-03] MEDS ORDERED: LIDOCAINE HCL 2% LUER-JET ONE (10:25)
[2017-11-03 15:23] VITALS: BP 116/73; TEMP 97.4
--- NOTE | 2017-11-04 09:16 | OP ---
INDICATIONS FOR PROCEDURE: 71 year old female presents for surveillance endoscopy for Fuentes's Esophagus. She is asymptomatic. She has a history of short segment Fuentes's disease MEDICATIONS: SEE ANESTHESIA NOTES. PROCEDURE: ENDOSCOPY, ESOPHAGEAL BIOPSIES REPORT: The risks, benefits, alternatives and limitations were discussed in detail with the patient. Informed consent was obtained. After adequate sedation was achieved, the video endoscope was introduced in the posterior pharynx and esophagus under direct vision and easily advanced down to the second portion of the duodenum. I then slowly withdrew. The duodenal mucosa appeared unremarkable as did the duodenal bulb. The antrum body is relatively unremarkable. The scope was retroflexed to look at the cardia and fundus which was unremarkable. The scope was anteflexed and withdrawn back through the esophagus. GE junction was at the top of the gastric folds. It was slightly irregular. The length in the Fuentes's segment was no more than 1.5cm. Four quadrant biopsies and targeted biopsies were obtained from the GE junction. The remaining esophagus appeared unremarkable as well. The patient tolerated the procedure well with stable vital signs and pulse oximetry throughout. IMPRESSION: 1. Short segment Fuentes's by history RECOMMENDATIONS: 1. Strict reflux precautions 2. Office visit as needed 3. Await pathology results and if everything is benign without dysplasia or atypia I recommend repeat endoscopy examination again in 3 years or sooner if there are signs of symptoms to indicate otherwise CC: Dr. Quezada. [facility] CENTERIsabella
== END 2017-11-03 12:20 | disposition home or self-care (01) ==
LOC: SURG 07:36
PROVIDERS: ATTEND Internal Medicine Gastroenterology
DX: K22.70 Barrett's esophagus without dysplasia (principal)

== ENCOUNTER 2018-01-19 12:54 | Outpatient (CLI) ==
--- NOTE | 2018-01-20 09:46 | MAMMO ---
EXAM: Bilateral digital screening mammogram (2-D and 3-D) History: Screening Comparison: Bilateral mammogram 02/05/2017 Findings: MLO and CC views of bilateral breasts demonstrate heterogeneously dense breast parenchyma which can obscure small lesions. CAD was reviewed by the radiologist. Tomosynthesis was performed. Stable benign bilateral vascular and scattered calcifications. There are no dominant masses, no travis picious microcalcifications and no architectural distortions Impression: Benign stable mammogram. Recommend followup routine screening mammography in 1 year. BIRADS 2
== END 2018-01-19 12:55 | disposition home or self-care (01) ==
LOC: RAD 12:54
PROVIDERS: ATTEND Internal Medicine
DX: Z12.31 Encounter for screening mammogram for malignant neoplasm of breast (principal)
CPT/HCPCS: 77067

== ENCOUNTER 2018-02-08 08:51 | Outpatient (CLI) | payer OTHER ==
--- NOTE | 2018-02-08 10:52 | CT ---
EXAM: CT of the head with and without contrast History: Dizziness. Comparison: Head CT 05/10/2017 Technique: Multiplanar CT images through the head were obtained without the administration of IV con trast Findings: The visualized paranasal sinuses and mastoid air cells are clear in general. No acute qi varial abnormalities. Intracranially the ventricular and cisternal spaces are normal in size, shape and configuration for a patient of this age. No dominant mass or midline shift. No hydrocephalous. No acute intracranial hemorrhage or abnormal extraaxial fluid collections. No abnormal contrast enhancement. Impression: Unremarkable exam.
== END 2018-02-08 08:52 | disposition home or self-care (01) ==
LOC: RAD 08:51
PROVIDERS: ATTEND Internal Medicine
DX: R42 Dizziness and giddiness (principal)
CPT/HCPCS: 36415; 82565

== ENCOUNTER 2018-02-10 12:15 | Outpatient (CLI) | payer OTHER ==
--- NOTE | 2018-02-10 14:28 | US ---
EXAM: Bilateral carotid artery Doppler History: Dizziness. Technique: Multiple sonographic images through the bilateral internal carotid arteries were obtained . Color duplex Doppler was used to interrogate vascular flow. Findings: The right ICA peak systolic velocity is within normal limits measuring 0.9 meters per second. The ri ght ICA/cca PSV ratio is normal at 1.7. The right vertebral artery is patent and demonstrates antegr maurisio flow. Delgado scale images demonstrate mild plaque buildup within the right internal carotid artery . The left ICA peak systolic velocity is within normal limits measuring 0.7 meters per second. The lef t ICA/cca PSV ratio is normal at 1.2. The left vertebral artery is patent and demonstrates antegrade flow. Delgado scale images demonstrate mild plaque buildup within the left internal carotid artery Impression: No significant hemodynamic stenosis of the bilateral internal carotid arteries.
== END 2018-02-10 12:16 | disposition home or self-care (01) ==
LOC: RAD 12:15
PROVIDERS: ATTEND Internal Medicine
DX: R42 Dizziness and giddiness (principal)

== ENCOUNTER 2018-02-11 06:28 | Outpatient (CLI) ==
--- NOTE | 2018-02-16 09:31 | ECHO2D ---
Date of Exam: 02/11/18 Ordering Physician: DR. MADINA MUÑOZ Room #: OP Reason for Echo: CHEST PAIN M-Mode Normal Adult Results LV Dimensions Normal Adult Results AoV Opening excursions >1.6 >1.6 LVEDD-base- 3.5-5.8 5.0 Ao root dimensions 2.0-3.7 3.1 LVESD-base- 3.1-4.6 L. Atrium dimensions 1.9-3.8 3.7 Post. Wall thickness 0.8-1.1 1.1 IV septum (thickness) 0.7-1.2 1.0 Post. Wall excursion 0.72-1.3 NORMAL Septal motion NORMAL Systolic motion R. Ventricular cavity 1.5-2.0 NORMAL LVEF 60% 61% Paradoxical septal wall motion NORMAL 2-D : 2-D M Mode Echocardiogram was performed using apical four chamber and left parasternal long and short axis views. Mitral, tricuspid and aortic valves appear to be normal. Contractility of the left ventricle seems to be normal, so is the cavity size. Left atrial cavity size and aortic root appear to be normal. There is no pericardial effusion. There is no thrombus noted in the left ventricular or left aortic cavity. No mitral valve prolapse noted. M-MODE: MV: NORMAL AV: NORMAL TV: NORMAL PV: CHAMBER SIZE: NORMAL WALL MOTION: NORMAL PERICARDIUM: NORMAL INTERPRETATION: 1. NORMAL 2 "D" "M" MODE ECHO MTDD
== END 2018-02-11 06:29 | disposition home or self-care (01) ==
LOC: CAR 06:28
PROVIDERS: ATTEND Internal Medicine
DX: R07.9 Chest pain, unspecified (principal)

== ENCOUNTER 2018-02-12 06:39 | Outpatient (CLI) ==
--- NOTE | 2018-02-12 09:40 | STRESSECHO ---
Date of Test: 02/12/18 Ordering Physician: DR. MADINA MUÑOZ Occupation:RETIRED Reason for Exam: CHEST PAIN Smoking History: QUIT 2006 Height: 62" Weight: 156 LBS Current Medications: TRAMADOL, ATIVAN, MEMANTINE, BACLOFEN Resting EKG: SINUS RHYTHM/ LVH Target Heart Rate: 124 S-T SEGMENT STAGE MPH/GRADE HEART RATE BPM BLOOD PRESSURE MMHG RHYTHM +/- ELEVATION DEPRESSION SYMPTOMS,COMMENTS AT REST 60 142/92 SR X NONE 1 1.7/10% 98 144/46 SR X NONE 2 2.5/12% 3 3.4/14% 4 4.2/16% 5 5.0/18% Immediately After 110 152/66 SR X FATIGUE Minutes Post Exercise 4:00 62 140/90 Minutes Post Exercise DURATION OF EXERCISE: 5:06 MAXIMUM HEART RATE REACHED: 110 REASON FOR TERMINATION: FATIGUE 100% OXYGEN SATURATION WITH EXERCISE ON ROOM AIR INTERPRETATION: 1. NO EVIDENCE OF ISCHEMIA BY ST-T WAVE FROM HEART BEAT 60 BPM TO 110 BPM WITH EXERCISE 2. NO CHEST PAIN OR CHEST DISCOMFORT 3. BLOOD PRESSURE RESPONSE: ADEQUATE 4. NO ARRHYTHMIAS NO LEFT VENTRICULAR CONTRACTILITY--RESTING AND POST EXERCISE MTDD
--- NOTE | 2018-02-12 09:45 | DI ---
EXAM: Four views of the cervical spine. History: Cervical neck pain, muscle spasm Comparison: Cervical spine CT 05/10/2017 Findings: No acute fracture or subluxation of the cervical spine. Grossly intact anterior cervical fusion hardware at C4-5. No prevertebral soft tissue swelling. Predental space is not widened. Athe rosclerotic vascular calcifications. Moderate to severe disc space narrowing at C5-6 and C6-7. Impression: No acute osseous abnormality of the cervical spine. Intact anterior cervical fusion aidan rose.
--- NOTE | 2018-02-12 09:53 | DI ---
EXAM: Four views of the thoracic spine. History: Thoracic back pain and muscle spasm Findings: Cholecystectomy clips. Postsurgical changes of the cervical spine. Atherosclerotic vascu lar calcifications. Mild S-shaped curvature of the thoracic spine. No acute fracture or subluxation . Mild multilevel degenerative disc space narrowing of the thoracic spine with a few tiny anterior o steophytes. Impression: No acute osseous abnormality of the thoracic spine. Mild degenerative disc disease
--- NOTE | 2018-02-16 09:05 | ECHOSTRESS ---
Date of Exam: 02/12/18 Ordering Physician: DR. MADINA MUÑOZ Reason for Echo: CHEST PAIN, STRESS TEST--NO ISCHEMIA M-Mode Normal Adult Results LV Dimensions Normal Adult Results AoV Opening excursions >1.6 LVEDD-base- 3.5-5.8 Ao root dimensions 2.0-3.7 LVESD-base- 3.1-4.6 L. Atrium dimensions 1.9-3.8 Post. Wall thickness 0.8-1.1 IV septum (thickness) 0.7-1.2 Post. Wall excursion 0.72-1.3 Septal motion Systolic motion R. Ventricular cavity 1.5-2.0 LVEF 60% Paradoxical septal wall motion 2-D: NORMAL LEFT VENTRICULAR CONTRACTILITY--RESTING AND POST EXERCISE M-MODE: MV: AV: TV: PV: CHAMBER SIZE: WALL MOTION: NORMAL LEFT VENTRICULAR CONTRACTILITY--RESTING AND POST EXERCISE PERICARDIUM: INTERPRETATION: 1. NORMAL LEFT VENTRICULAR CONTRACTILITY--RESTING AND POST EXERCISE MTDD
== END 2018-02-12 06:40 | disposition home or self-care (01) ==
LOC: CAR 06:39
PROVIDERS: ATTEND Internal Medicine
DX: R07.9 Chest pain, unspecified (principal); M62.830 Muscle spasm of back

== ENCOUNTER 2018-07-20 10:59 | Emergency (ER) | payer OTHER ==
[2018-07-20 11:02] VITALS: TEMP 96.3; BMI 28.7
[2018-07-20] MEDS ORDERED: ZESTRIL PO STA (11:11)
--- NOTE | 2018-07-20 12:13 | ED.PDOC ---
General ED Provider: Dr. WILLIAN SHEIKH Chief Complaint: Hypertension Stated Complaint: hypertension, this lady was seen at [facility] blood pressure was high went to pmd office and subsequently ED . DENIED C/P, S.O.B. HAS A CHRONIC DIZZINESS WHICH IS UNCHANGED SINCE DECEMBER. NO WEAKNESS NOTED . Time Seen by Physician: 11:00 Mode of Arrival: Walk-In Information Source: Patient Exam Limitations: No limitations Primary Care Provider: MADINA MUÑOZ Nursing and Triage Documentation Reviewed and Agree: Yes Does patient meet sepsis criteria?: No If yes, has appropriate treatment been initiated?: No System Inflammatory Response Syndrome: Not Applicable Sepsis Protocol: For patient's 13 years and over: Temp is 96.8 and below OR 101 and greater Pulse >90 BPM Resp >20/minute Acutely Altered Mental Status Are patient's symptoms suggestive of a new infection, such as: -Pneumonia -Skin, Soft Tissue -Endocarditis -UTI -Bone, Joint Infection -Implantable Device -Acute Abdominal Infection -Wound Infection -Meningitis -Blood Stream Catheter Infection -Unknown Cardiovascular Complaint Exam - Hypertension Complaint/Exam Onset/Duration: TODAY Symptoms Are: Still present Reported B/P Prior to Arrival: [facility] Aggravating: Reports: None Alleviating: Reports: None Associated Signs and Symptoms: Denies: Chest pain, Vision changes, Anxiety, Recent stress, Headache, Numbness, Tingling, Weakness, Dizziness, Short of air, Swelling Related History: Reports: Similar episode (THE DIZZINESS IS A CHRONIC ISSUE . SHE HAS HAD SINCE A HEAD INJURY NOT RECENT ISSUE) Related Surgical History: Reports: None Cardiac Risk Factors: Reports: Hypertension Review of Systems - Review Of Systems Constitutional: Reports: No symptoms Eyes: Reports: No symptoms Ears, Nose, Mouth, Throat: Reports: No symptoms Respiratory: Reports: No symptoms Cardiac: Reports: No symptoms GI: Reports: No symptoms : Reports: No symptoms Musculoskeletal: Reports: No symptoms Skin: Reports: No symptoms Neurological: Reports: Headache, Other (DIZZINESS ) Endocrine: Reports: No symptoms Hematologic/Lymphatic: Reports: No symptoms All Other Systems: Reviewed and Negative Past Medical History - Past Medical History Previously Healthy: No Endocrine: Reports: None Cardiovascular: Reports: None Respiratory: Reports: None Hematological: Reports: None, Other (BLADDER ISSUES ) Gastrointestinal: Reports: GERD Genitourinary: Reports: None Neuro/Psych: Reports: Anxiety Musculoskeletal: Reports: Other Cancer: Reports: None Last Menstrual Period: n/a Other Pertinent Past Medical History: gerd anx - Surgical History General Surgical History: Reports: None, Hysterectomy ( PARTIAL HIST. 1972), Tubal ligation, Cholecystectomy (GALLBLADDER REMOVED), Back Surgery (2 NECK SURGERIES 1 LOWER BACK SURGER) - Family History Family History: Reports: None - Social History Smoking Status: Former smoker Hx Substance Use: No Alcohol Screening: None Physical Exam - Physical Exam Appearance: Well-appearing, No pain distress, Well-nourished Eyes: EDILSON, EOMI, Conjunctiva clear ENT: Ears normal, Nose normal, Oropharynx normal Respiratory: Airway patent, Breath sounds clear, Breath sounds equal, Respirations nonlabored Cardiovascular: RRR, Pulses normal, No rub, No murmur GI/: Soft, Nontender, No masses, Bowel sounds normal, No Organomegaly Musculoskeletal: Normal strength, ROM intact, No edema, No calf tenderness Skin: Warm, Dry, Normal color Neurological: Sensation intact, Motor intact, Reflexes intact, Cranial nerves intact, Alert, Oriented Psychiatric: Affect appropriate, Mood appropriate Re-Evaluation - Re-Evaluation Time of Re-Evaluation: 12:15 Status: Improved Vital Signs Stable: Yes Pain Level: 0 Appearance: NAD Lungs: Clear Skin: Warm and Dry Neuro: Alert and Oriented X3 CV: RRR Additional Comments: SBP 166 Critical Care Note - Critical Care Note Total Time (mins): 0 Course - Course Orders, Labs, Meds: Orders Category Date Time Status Lisinopril [Zestril] MEDS 07/20/18 11:11 Discontinued 10 mg PO ONCE STA Medications Discontinued Medications Generic Name Dose Route Start Last Admin Trade Name Kate PRN Reason Stop Dose Admin Lisinopril 10 mg 07/20/18 11:11 07/20/18 11:27 Zestril PO 07/20/18 11:12 10 mg ONCE STA Administration Vital Signs: Temp Pulse Resp BP Pulse Ox 07/20/18 10:59 96.3 F L 68 20 161/89 H 98 SHON Risk Score SHON Risk Score: Risk Score Odds of by 30D 0 0.1 (0.1-0.2) 1 0.3 (0.2-0.3) 2 0.4 (0.3-0.5) 3 0.7 (0.6-0.9) 4 1.2 (1.0-1.5) 5 2.2 (1.9-2.6) 6 3.0 (2.5-3.6) 7 4.8 (3.8-6.1) Departure - Departure Time of Disposition: 12:15 Disposition: HOME SELF-CARE Discharge Problem: Hypertension Qualifiers: Hypertension type: unspecified Qualified Code(s): I10 - Essential (primary) hypertension Instructions: Hypertension (ED) Condition: Good Pt referred to PMD for follow-up: Yes IPMP verified?: No Additional Instructions: Please call your Family Physician as soon as possible to schedule a follow-up appointment. Prescriptions: Lisinopril [Prinivil] 20 mg PO DAILY 7 Days tablet Allergies/Adverse Reactions: Allergies Penicillins Adverse Reaction (Verified 07/20/18 11:02) Home Medications: Ambulatory Orders Lorazepam [Ativan] 0.5 mg PO TID 05/13/16 Cyanocobalamin (Vitamin B-12) [Vitamin B-12] 1 mcg PO DAILY 11/03/17 Baclofen 10 mg PO BEDTIME 07/20/18 Lisinopril [Prinivil] 20 mg PO DAILY 7 Days tablet 07/20/18 Memantine HCl [Namenda] 5 mg PO DAILY 07/20/18
[2018-07-20 12:48] VITALS: BP 134/69
== END 2018-07-20 12:48 | disposition home or self-care (01) ==
LOC: ED 10:59
DX: I10 Essential (primary) hypertension (principal); R51 Headache; R42 Dizziness and giddiness; Z79.899 Other long term (current) drug therapy
CPT/HCPCS: 99283